=== PATIENT | male | born 1955 | race Caucasian/White ===

== ENCOUNTER → 2021-05-04 | Outpatient (REF) | payer OTHER, MEDICAID | LOC: M SFHCRHEU 15:45 | PROVIDERS: ATTEND Internal Medicine | DX: M25.50 Pain in unspecified joint (principal) ==

== ENCOUNTER → 2021-07-07 | Outpatient (REF) | payer OTHER, MEDICAID | LOC: M SFHCRHEU 12:35 | PROVIDERS: ATTEND Internal Medicine | DX: M25.50 Pain in unspecified joint (principal) ==

== ENCOUNTER → 2021-08-06 | Outpatient (CLI) | payer OTHER ==
[~2021-08-06] MED LIST: B-122500 PO; GLUC1CAP10 PO; LEVO50TA5 PO; PRED10PA PO; Vitamin D PO
[2021-08-06 10:40] LABS: BASO # 0.1 10^3/uL (0.0-0.2); BASO % 0.5 % (0.0-1.0); EOS # 0.2 10^3/uL (0.0-0.5); HEMATOCRIT 52.7 % (42.0-52.0); HEMOGLOBIN 17.8 g/dl (13.5-17.5); MEAN CORPUSCULAR HEMOGLOBIN 30.9 pg (27.0-33.0); MEAN CORPUSCULAR HGB CONC 33.8 g/dl (32.0-36.5); MEAN CORPUSCULAR VOLUME 91.5 fl (80.0-96.0); MONO # 0.7 10^3/uL (0.0-0.8); MONO % 6.9 % (2.0-8.0); NEUTROPHILS # 7.8 10^3/uL (1.5-8.5); NEUTROPHILS % 80.1 % (36.0-66.0); PLATELET COUNT, AUTOMATED 250 10^3/uL (150-450); RED BLOOD COUNT 5.76 10^6/uL (4.30-6.10); WHITE BLOOD COUNT 9.8 10^3/uL (4.0-10.0)
[2021-08-06 10:51] LABS: INR 0.92; PARTIAL THROMBOPLASTIN TIME 28.6 SECONDS (25.9-37.0); PROTHROMBIN TIME 12.8 SECONDS (12.7-14.5)
== END ==
LOC: M LAB 09:58
PROVIDERS: ATTEND Psychiatry & Neurology Neurology
DX: G35 Multiple sclerosis (principal)

== ENCOUNTER → 2021-08-10 | Outpatient (CLI) | payer OTHER ==
[2021-08-10 15:29] LABS: APPEARANCE, CSF CLEAR (CLEAR); COLOR, CSF COLORLESS (COLORLESS); CSF TUBE# CELL CNT TUBE 1
[2021-08-10 15:33] LABS: CSF TUBE# GLU TUBE 1; CSF TUBE# TP TUBE 1; GLUCOSE CSF 65 MG/DL (40-75); TOTAL PROTEIN,CSF 51 MG/DL (15-45)
[2021-08-10 16:10] VITALS: BP 127/69
== END ==
LOC: M IRPRO 13:01
PROVIDERS: ATTEND Psychiatry & Neurology Neurology
DX: G35 Multiple sclerosis (principal)

== ENCOUNTER → 2021-11-10 | Outpatient (CLI) | payer MEDICAID, OTHER | LOC: M PLAIMG 12:56 | PROVIDERS: ATTEND Internal Medicine | DX: M25.461 Effusion, right knee (principal) ==

== ENCOUNTER → 2021-11-10 | Outpatient (REF) | payer OTHER, MEDICAID | LOC: M SFHCRHEU 12:29 | PROVIDERS: ATTEND Internal Medicine | DX: M25.50 Pain in unspecified joint (principal) ==

== ENCOUNTER → 2022-01-27 | Outpatient (REF) | payer OTHER, MEDICAID | LOC: M SFHCRHEU 12:46 | PROVIDERS: ATTEND Internal Medicine | DX: M25.50 Pain in unspecified joint (principal); M25.461 Effusion, right knee ==

== ENCOUNTER → 2022-04-11 | Outpatient (REF) | payer OTHER, MEDICAID ==
[2022-04-11 18:16] LABS: C REACTIVE PROTEIN QUANTITATIV < 0.40 MG/DL (<1.0)
[2022-04-11 18:21] LABS: TOTAL 25(OH) VITAMIN D 64.7 NG/ML (20.0-100.0)
== END ==
LOC: M SFHCRHEU 12:49
PROVIDERS: ATTEND Internal Medicine
DX: M25.50 Pain in unspecified joint (principal); Z79.52 Long term (current) use of systemic steroids

== ENCOUNTER → 2022-04-11 | Outpatient (CLI) | payer MEDICAID, OTHER | LOC: M PLAIMG 13:24 | PROVIDERS: ATTEND Internal Medicine | DX: M25.571 Pain in right ankle and joints of right foot (principal); M19.031 Primary osteoarthritis, right wrist; M19.032 Primary osteoarthritis, left wrist; M25.572 Pain in left ankle and joints of left foot ==

== ENCOUNTER → 2022-04-15 | Outpatient (REF) | payer OTHER, MEDICAID ==
[2022-04-15 16:33] LABS: SOURCE, BODY FLUID RT KNEE
[2022-04-15 16:34] LABS: SYNOVIAL FLUID COLOR RED (COLORLESS)
[2022-04-15 17:10] LABS: SOURCE, BODY FLUID GLUCOSE RT KNEE
[2022-04-15 18:01] LABS: CRYSTALS, BODY FLUID NONE SEEN (NONE SEEN); SOURCE, BODY FLUID CRYSTALS RT KNEE
== END ==
LOC: M SFHCRHEU 15:37
PROVIDERS: ATTEND Internal Medicine
DX: M17.11 Unilateral primary osteoarthritis, right knee (principal)

== ENCOUNTER → 2022-05-16 | Outpatient (REF) | payer OTHER, MEDICAID ==
[2022-05-16 13:33] LABS: SOURCE, BODY FLUID RT KNEE; SYNOVIAL FLUID COLOR YELLOW (COLORLESS)
[2022-05-16 13:48] LABS: SOURCE, BODY FLUID GLUCOSE RT KNEE
[2022-05-16 14:44] LABS: CRYSTALS, BODY FLUID NONE SEEN (NONE SEEN); SOURCE, BODY FLUID CRYSTALS RT KNEE
== END ==
LOC: M LAB REF 12:57
PROVIDERS: ATTEND Physician Assistant
DX: M70.41 Prepatellar bursitis, right knee (principal)

== ENCOUNTER → 2023-05-01 | Outpatient (REF) | payer MEDICARE | LOC: M SFHCRHEU 10:19 | PROVIDERS: ATTEND Internal Medicine | DX: M25.50 Pain in unspecified joint (principal) ==